=== PATIENT | male | born 1980 | race Caucasian/White ===

== ENCOUNTER 2020-01-11 11:00 | Emergency (ER) | payer OTHER, SELFPAY ==
[2020-01-11 11:40] VITALS: BP 118/71; PULSE 70; RESP 16; TEMP 35.7; O2SAT 99
--- NOTE | 2020-01-11 12:05 | ED.DENTAL ---
HPI - Dental/Oral General Chief complaint: Dental/Oral Stated complaint: toothache Time Seen by Provider: 01/11/20 11:56 Source: patient and RN notes reviewed Mode of arrival: ambulatory Limitations: no limitations History of Present Illness HPI Narrative: Patient presents today complaining of right upper posterior tooth pain x10 to 14 days. Reports the affected tooth has been broken for some time. He had an appointment with a dentist this morning, showed up for the appointment, and was told that they do not take his insurance. Currently rates his pain sick/10 and has been taking Tylenol and ibuprofen. MD Complaint: tooth pain Related Data Allergies Allergy/AdvReac Type Severity Reaction Status Date / Time No Known Allergies Allergy Unverified 07/18/19 19:16 Review of Systems Review of Systems: Narrative: CONSTITUTIONAL: Denies body aches, fever, chills, or sweats. EYES: Denies visual changes, redness, or discharge. ENT: Denies rhinorrhea, congestion, sore throat, or otalgia.+ Dental pain CARDIOVASCULAR: Denies chest pain, palpitations, or edema. RESPIRATORY: Denies cough or dyspnea. GASTROINTESTINAL: Denies abdominal pain, nausea, vomiting, or diarrhea. GENITOURINARY: Denies dysuria or hematuria. SKIN: Denies rash, itching, or wounds. MUSCULOSKELETAL: Denies back pain, joint pain, or myalgia. NEUROLOGIC: Denies headache, numbness, tingling, or weakness. PSYCH: Denies depression or anxiety. PMFSH Social History Social History Gender identity (if verbalized by the patient): Male Comments At time of signature, I have reviewed and agree with nursing past medical, surgical, social and family history unless otherwise noted. Please see nursing chart for further information. There is no relevant family history pertinent to the presenting complaint Exam Narrative: Exam Narrative: GENERAL: Well-appearing, well-nourished, and in no acute distress. HEAD: Normocephalic, atraumatic. EYES: EOMI. No redness or drainage. Conjunctivae normal. ENT: Mucous membranes pink and moist. Throat normal. Uvula midline. Tooth #1 is fractured with a piece missing. No obvious gingival swelling or periapical abscess. No facial swelling. NECK: Normal AROM. Supple. No lymphadenopathy. CHEST: No respiratory distress. EXTREMITIES: Normal range of motion. No edema. SKIN: Warm, dry, no rash. Capillary refill normal. Normal skin turgor. NEURO: No focal deficits. Alert and oriented x3. Gait steady. PSYCH: Normal affect. No signs of depression or anxiety. Course Vital Signs Vital signs: Vital Signs Temperature 96.2 F L 01/11/20 11:40 Pulse Rate 70 01/11/20 11:40 Respiratory Rate 16 01/11/20 11:40 Blood Pressure 118/71 01/11/20 11:40 Pulse Oximetry 99 01/11/20 11:40 Temperature 96.2 F L 01/11/20 11:40 Pulse Rate 70 01/11/20 11:40 Respiratory Rate 16 01/11/20 11:40 Blood Pressure 118/71 01/11/20 11:40 Pulse Oximetry 99 01/11/20 11:40 Reviewed MDM - Dental/Oral Differential Diagnosis Differential diagnosis: Likely gingival abscess, dental caries, toothache, dental abscess and fracture of tooth Critical Care Time Critical Care Time Critical Care Time: No Discharge Plan Discharge Clinical Impression: Infected dental carries Patient Disposition: Home, Self-Care Condition: Stable Instructions: Antibiotic Form, Dental Abscess (ED) Additional Instructions: Please take the amoxicillin as prescribed until gone. You may take up to 3000mg of tylenol and 2400mg of ibuprofen in 24 hours. Do not exceed these amounts. Follow-up with a dentist as soon as possible. Patient Language: Greek Prescriptions: New amoxicillin 875 mg tablet 875 mg PO Q12H 10 Days Qty: 20 RF: 0 Interventions: Discharge Disposition Last Done: 01/11/20 12:16 Follow-up/Referrals: UNKNOWN,DOCTOR [Primary Care Provider] - Time of Disposition: 12:10 Discharge Date/Time: 01/11/20 12:16
== END 2020-01-11 12:16 | disposition home or self-care (01) ==
PROVIDERS: Emergency Provider Nurse Practitioner; PCP Family Medicine
DX: K02.9 Dental caries, unspecified (principal)
CPT/HCPCS: 99213; G0463

== ENCOUNTER 2020-02-26 13:26 | Emergency (ER) | payer OTHER, SELFPAY ==
[2020-02-26 14:22] VITALS: BP 117/82; PULSE 80; RESP 20; TEMP 36.6; O2SAT 100
--- NOTE | 2020-02-26 14:43 | ED.DENTAL ---
HPI - Dental/Oral General Chief complaint: Dental/Oral Stated complaint: tooth abscess Time Seen by Provider: 02/26/20 14:30 Source: patient Mode of arrival: ambulatory Limitations: no limitations History of Present Illness HPI Narrative: Artie Avalos is a 39-year-old male with no prior medical history who comes with dental abscess of the right upper molar. He was seen here 2 to 3 weeks ago for antibiotics and seen by a dentist for and given antibiotics but was unable to get an appointment with an oral surgeon she will March 13. Is of amoxicillin and is continued to have swelling and pain in the tooth Related Data Allergies Allergy/AdvReac Type Severity Reaction Status Date / Time No Known Allergies Allergy Unverified 01/12/20 12:12 Review of Systems Review of Systems: Narrative: CONSTITUTIONAL: Denies fever, chills, sweats. EYES: Denies visual changes, redness, discharge. ENT: Denies rhinorrhea, congestion, sore throat, otalgia. Right upper molar abscess tooth 16 CARDIOVASCULAR: Denies chest pain, palpitations, edema. RESPIRATORY: Denies dyspnea, wheezing, cough GASTROINTESTINAL: Denies abdominal pain, nausea, vomiting, diarrhea. GENITOURINARY: Denies dysuria, hematuria, abnormal discharge SKIN: Denies rash or itching. NEUROLOGIC: Denies numbness, or focal weakness. PSYCHIATRIC: Denies anxiety or depression. PMFSH Family History Family History Other Depression Social History Social History Smoking status: Current every day smoker Tobacco type: e-cigarettes/vaping Alcohol intake: never Gender identity (if verbalized by the patient): Male Comments At time of signature, I agree with nursing past medical, surgical, social and family history. There is no relevant family history pertinent to the presenting complaint. Exam Narrative: Exam Narrative: GENERAL: This is a well-nourished, well-developed patient, in mild distress. HEAD: normocephalic, atraumatic. EYES: Sclera clear/white. Vision is grossly intact. EARS: External ears normal, auditory canals clear and without drainage, TMs normal without perforation. Hearing grossly intact. NOSE: External nose normal without nasal discharge, nares without redness, no rhinorrhea. THROAT: Mucous membranes moist, posterior pharynx mouth-right upper premolar tooth 16 broken swollen, right facial swelling tenderness across TMJ NECK: Neck supple, CARDIOVASCULAR: Regular rate and rhythm without murmurs, gallops, or rubs. RESPIRATORY: Clear to auscultation. Breath sounds equal bilaterally. No wheezes, rales, or rhonchi. GASTROINTESTINAL: Abdomen soft, SKIN: warm, intact with no suspicious lesions or rash, good texture and turgor. NEURO: awake, alert, and oriented to person, place and time. There were no obvious focal neurologic abnormalities. Steady gait EXTREMITIES: Normal range of motion. BACK: Nontender without deformity Course Course Emergency Course: Started on clindamycin ibuprofen 600 and limited number of [place] for pain Has oral surgeon appointment for March 13 To use salt water gargle to keep mouth clean Vital Signs Vital signs: Vital Signs Temperature 97.8 F 02/26/20 14:22 Pulse Rate 80 02/26/20 14:22 Respiratory Rate 20 02/26/20 14:22 Blood Pressure 117/82 02/26/20 14:22 Pulse Oximetry 100 02/26/20 14:22 Temperature 97.8 F 02/26/20 14:22 Pulse Rate 80 02/26/20 14:22 Respiratory Rate 20 02/26/20 14:22 Blood Pressure 117/82 02/26/20 14:22 Pulse Oximetry 100 02/26/20 14:22 MDM - Dental/Oral Differential Diagnosis Differential diagnosis: Likely gingival abscess, dental caries, dental abscess and other Discharge Plan Discharge Clinical Impression: Dental abscess Patient Disposition: Home, Self-Care Condition: Stable Instructions: Antibiotic Form, Dental Abscess (ED) Additional Instructions:
== END 2020-02-26 14:53 | disposition home or self-care (01) ==
PROVIDERS: Emergency Provider Nurse Practitioner
DX: K04.7 Periapical abscess without sinus (principal); F17.290 Nicotine dependence, other tobacco product, uncomplicated
CPT/HCPCS: 99213; G0463

== ENCOUNTER 2021-05-21 12:35 | Emergency (ER) | payer OTHER, SELFPAY ==
[2021-05-21 12:45] VITALS: BP 114/81; PULSE 74; RESP 16; TEMP 36.8; O2SAT 100
[2021-05-21] MEDS: ONDANSETRON HCL ODT 4 MG TABLET 8 MG SUBLINGUAL (14:08)
--- NOTE | 2021-05-22 08:57 | ED.GENADULT ---
HPI - General Adult General Chief complaint: Skin/Abscess/Foreign Body Stated complaint: Cut on Forehead Time Seen by Provider: 05/21/21 13:33 Source: patient and RN notes reviewed Mode of arrival: ambulatory Limitations: no limitations History of Present Illness HPI narrative: Patient presents today with abrasions to his forehead. He was at work just prior to arrival, and struck the center of his forehead on the corner of a freezer. Denies loss of consciousness. He does report a headache, mostly occipital and behind his eyes. He reports some mild nausea as well some photophobia. Denies vision changes, neck pain. He is not up-to-date on his tetanus vaccine, but refuses 1 today. Currently rates his pain 6/10. He has tried no [id number] treatment prior to arrival. MD complaint: Forehead injury, headache Related Data Allergies Allergy/AdvReac Type Severity Reaction Status Date / Time No Known Allergies Allergy Verified 05/21/21 12:57 Review of Systems Review of Systems: CONSTITUTIONAL: Denies body aches, fever, chills, or sweats. EYES: Denies visual changes, redness, or discharge.+ Photophobia ENT: Denies rhinorrhea, congestion, sore throat, or otalgia. CARDIOVASCULAR: Denies chest pain, palpitations, or edema. RESPIRATORY: Denies cough or dyspnea. GASTROINTESTINAL: Denies abdominal pain, vomiting, or diarrhea.+ Nausea GENITOURINARY: Denies dysuria or hematuria. SKIN: Denies rash, itching, or wounds.+ Abrasion MUSCULOSKELETAL: Denies back pain, joint pain, or myalgia. NEUROLOGIC: Denies numbness, tingling, or weakness.+ Headache PSYCH: Denies depression or anxiety. [facility] Family History Family History Other Depression Social History Social History Smoking status: Current every day smoker Tobacco type: e-cigarettes/vaping Alcohol intake: never Gender identity (if verbalized by the patient): Male Comments At time of signature, I have reviewed and agree with nursing past medical, surgical, social and family history unless otherwise noted. Please see nursing chart for further information. There is no relevant family history pertinent to the presenting complaint Exam Narrative: GENERAL: Well-appearing, well-nourished, and in mild pain distress. HEAD: Normocephalic, atraumatic. EYES: EOMI. PERRL. No redness or drainage. Conjunctivae normal. ENT: Mucous membranes pink and moist. NECK: Normal AROM. Supple. No lymphadenopathy. CHEST: No respiratory distress. Clear to auscultation. HEART: Regular rate and rhythm. No murmur appreciated. Normal peripheral pulses. ABDOMEN: Soft, nontender, nondistended, normal active bowel sounds. MUSCULOSKELETAL: No bony tenderness. EXTREMITIES: Normal range of motion. No edema. SKIN: Warm, dry, no rash. Capillary refill normal. Normal skin turgor. Mild abrasions between eyebrows on forehead. No active bleeding. NEURO: No focal deficits. Alert and oriented x3. Gait steady. PSYCH: Normal affect. No signs of depression or anxiety. Course Course Emergency Course: Patient has been treated with a dose of Zofran for his nausea prior to discharge. He declines tetanus vaccine. He declines a prescription for Zofran. Vital Signs Vital signs: Vital Signs Temperature 98.2 F 05/21/21 12:45 Pulse Rate 74 05/21/21 12:45 Respiratory Rate 16 05/21/21 12:45 Blood Pressure 114/81 05/21/21 12:45 Pulse Oximetry 100 05/21/21 12:45 Temperature 98.2 F 05/21/21 12:45 Pulse Rate 74 05/21/21 12:45 Respiratory Rate 16 05/21/21 12:45 Blood Pressure 114/81 05/21/21 12:45 Pulse Oximetry 100 05/21/21 12:45 Reviewed. Pt has been instructed to follow up with his PCP regarding his elevated blood pressure today. Medical Decision Making Differential Diagnosis Differential Diagnosis: Abrasion, contusion, intracranial hemorrhage, concuss
== END 2021-05-21 14:25 | disposition home or self-care (01) ==
PROVIDERS: Emergency Provider Nurse Practitioner
DX: S06.0X0A Concussion without loss of consciousness, initial encounter (principal); F17.290 Nicotine dependence, other tobacco product, uncomplicated; W22.8XXA Striking against or struck by other objects, initial encounter; Y99.0 Civilian activity done for income or pay
CPT/HCPCS: 99213; A9270; G0463

== ENCOUNTER 2022-03-15 13:23 | Emergency (ER) | payer OTHER, SELFPAY ==
[2022-03-15 13:32] VITALS: BP 129/89; PULSE 85; RESP 18; TEMP 36.4; O2SAT 100
--- NOTE | 2022-03-15 14:10 | ED.GENADULT ---
HPI - General Adult General Chief complaint: Shortness of Breath/Dyspnea Stated complaint: Chest Pain Time Seen by Provider: 03/15/22 14:11 Source: patient and RN notes reviewed Mode of arrival: ambulatory Limitations: no limitations History of Present Illness HPI narrative: 41-year-old male presents to the [facility] with complaints of my heart pounding hard. Patient states that he is very concerned that it is his heart making him feel like this. States it feels like his heart keeps beating really hard and causing him to be short of breath and having to take really deep breaths. Patient states I am getting older . Patient also states he had a similar feeling when he was dehydrated a couple of years ago. Patient does not appear dehydrated. Patient appears nontoxic. Patient is having discomfort in the left side of his chest. Has not taken anything for pain. States that he was at work and had to leave because he just did not feel right. Patient talking in full sentences, vitals are stable MD complaint: Palpitations Onset (ago): day(s) (1) Radiation: non-radiation Severity: mild Related Data Home Medications Medication Instructions Recorded Confirmed cetirizine 10 mg tablet 1 tablet PO DAILY PRN Allergy 03/15/22 03/15/22 Symptoms cholecalciferol (vitamin D3) 1,250 1 cap PO WEEKLY 03/15/22 03/15/22 mcg (50,000 unit) capsule fluticasone propionate 50 1 ea intranasal DIRECTED 03/15/22 03/15/22 mcg/actuation nasal spray,suspension Allergies Allergy/AdvReac Type Severity Reaction Status Date / Time No Known Allergies Allergy Verified 03/15/22 13:29 Review of Systems Review of Systems: All systems reviewed & are unremarkable except as noted in HPI and below Constitutional: Constitutional: Reports no additional constitutional complaints, Denies chills and Denies fever(s) Eyes: Eyes: Reports no additional eye complaints ENT: Reports system reviewed and no additional complaints, except as documented Cardiovascular: Cardiovascular: Reports as per HPI and Reports chest pain Respiratory: Respiratory: Reports as per HPI and Reports dyspnea Gastrointestinal: Gastrointestinal: Reports no additional gastrointestinal complaints Musculoskeletal: Musculoskeletal: Reports no additional musculoskeletal complaints Integumentary/Breasts: Skin/Breast: Reports system reviewed and no additional complaints, except as docu Neurologic: Reports system reviewed and no additional complaints, except as documented Psychiatric: Psychiatric: Reports no additional psychiatric complaints Allergic/Immunologic: Allergic/Immunologic: Reports no additional allergic/immunologic complaints PMFSH Past Medical History Medical History (Updated 03/15/22 @ 14:39 by Seble Rust APRN) Patient denies medical problems Surgical History Surgical History (Updated 03/15/22 @ 14:37 by Seble Rust APRN) No history of previous surgery Family History Family History Other Depression Social History Social History Smoking status: Current every day smoker Tobacco type: e-cigarettes/vaping Alcohol intake: never Gender identity (if verbalized by the patient): Male Comments At the time of my signature, I reviewed and agree with the nursing past medical, surgical, social, and family history. There is no relevant family history pertinent to the patient complaint. Exam Const: General: healthy appearing, no acute distress and alert Nutritional Appearance: well nourished Orientation/consciousness: patient oriented x3 Limitations: no limitations HENMT: Head: normal to inspection Ears: external ears normal General nose exam: Normal external nose present Eyes: General: appearance normal, both eyes and all related structures Pupils: Equal, round and reactive pupils present Neck: Neck: normal visual inspec
--- NOTE | 2022-03-15 14:19 | ECG_ITS ---
Measurements Intervals [place] Rate: 72 P: 72 UT: 120 QRS: 77 QRSD: 95 T: 53 QT: 383 QTc: 420 Interpretive Statements SINUS RHYTHM BASELINE ARTIFACT- I, II, AVR, AVL NORMAL ECG Electronically Signed On 03-15-2022 15:07:47 CDT by Jose Parker D.O.
== END 2022-03-15 14:36 | disposition short-term general hospital (02) ==
PROVIDERS: Emergency Provider Nurse Practitioner; PCP Family Medicine
DX: R00.2 Palpitations (principal); R06.02 Shortness of breath; F17.290 Nicotine dependence, other tobacco product, uncomplicated
CPT/HCPCS: 93005; 99213; G0463

== ENCOUNTER 2022-03-15 15:00 | Emergency (ER) | payer OTHER, SELFPAY ==
--- NOTE | ~2022-03-15 | XR_ITS ---
XR chest 2V DATE: 03/15/2022 15:23 INDICATION: Left-sided chest pain, palpitations, shortness of breath TECHNIQUE: 2 views COMPARISON: 05/08/2010 two-view chest FINDINGS: Prominent bilateral hyperinflation with increased retrosternal airspace and flattening the diaphragm, consistent with obstructive airways disease. No pulmonary infiltrate or consolidation, pleural effusion or pulmonary vascular congestion or pneumo thorax. Normal heart size. No hilar or mediastinal enlargement. IMPRESSION: Bilateral hyperinflation consistent with obstructive airways disease; hyperinflation is p rominent compared to 05/08/2010 Reviewed, dictated and finalized at location A. IMPRESSION: Bilateral hyperinflation consistent with obstructive airways diseas e; hyperinflation is prominent compared to 05/08/2010
[2022-03-15 15:03] VITALS: BP 132/109; PULSE 89; RESP 18; TEMP 36.9; O2SAT 98
--- NOTE | 2022-03-15 15:06 | ECG_ITS ---
Measurements Intervals [place] Rate: 82 P: 79 NV: 123 QRS: 81 QRSD: 94 T: 56 QT: 355 QTc: 417 Interpretive Statements SINUS RHYTHM WITH SINUS ARRHYTHMIA BORDERLINE ST-T WAVE ABNORMALITY- INFERIOR LEADS BORDERLINE ECG Electronically Signed On 03-15-2022 15:16:41 CDT by Jose Parker D.O.
[2022-03-15 15:23] LABS: Hematocrit 45.7 % (42.0-52.0); Hemoglobin 15.3 g/dL (14.0-18.0); Mean Corpuscular HGB Conc 33.5 g/dl (32-36); Mean Corpuscular Hemoglobin 30.1 pg (26-34); Mean Corpuscular Volume 89.8 fl (80-100); Mean Platelet Volume 9.3 fl (7.4-10.4); Platelet Count Result 230 k/mm3 (150-375); Red Blood Count 5.09 M/mm3 (4.6-6.20); Red Cell Distribution Width 12.8 % (11.5-14.5); White Blood Count 6.7 K/mm3 (4.5-10.0)
[2022-03-15 15:33] LABS: Alanine Aminotransferase 15 U/L (6-50); Albumin Level 4.8 g/dL (3.5-5.1); Alkaline Phosphatase 58 U/L (38-126); Anion Gap 6 mmol/L (8-16); Aspartate Amino Transferase 23 U/L (17-59); Bilirubin,Total 0.6 mg/dL (0.2-1.3); Blood Urea Nitrogen 17 mg/dL (9-20); Calcium 9.3 mg/dL (8.4-10.2); Carbon Dioxide 29 mmol/L (22-30); Chloride 104 mmol/L (98-107); Estimated CRCL calculation 101 ml/min; Estimated Glomerular Filt Rate > 60; Glucose 112 mg/dL (65-110); Lipase 101 U/L (23-300); Sodium 139 mmol/L (137-145)
[2022-03-15 15:45] LABS: Troponin I < 0.012 ng/mL (0.000-0.034)
[2022-03-15 15:54] VITALS: PULSE 74
[2022-03-15 15:58] VITALS: BP 133/93; PULSE 70; RESP 18; O2SAT 97
[2022-03-15] MEDS: ASPIRIN 81 MG CHEWABLE TABLET 324 MG PO (16:06)
--- NOTE | 2022-03-15 16:08 | ED.CHESTPAIN ---
HPI - Chest Pain General Chief Complaint: Chest Pain Stated Complaint: Chest Pain, SOB Time Seen by Provider: 03/15/22 16:08 History of Present Illness HPI narrative: Patient is a 41-year-old male presenting for evaluation of palpitations. Patient reports intermittent palpitations, shortness of breath. Denies specific chest pain or pressure. Denies radiation of the pain to the shoulder, jaw, neck. Patient does report mild middle back pain. Patient reports significant anxiety, denies any significant depression or suicidal thoughts or ideation. He denies fever, chills, nausea or vomiting. Patient denies lower leg swelling or pain. He denies history of coagulopathy, recent car or air travel. Related Data Allergies Allergy/AdvReac Type Severity Reaction Status Date / Time No Known Allergies Allergy Verified 03/15/22 15:58 [facility] Past Medical History Medical History (Updated 03/15/22 @ 17:53 by Jeanette Almeida MD) Patient denies medical problems Surgical History Surgical History (Updated 03/15/22 @ 14:37 by Seble Rust APRN) No history of previous surgery Family History Family History Other Depression Social History Social History Smoking status: Current every day smoker Tobacco type: e-cigarettes/vaping Alcohol intake: never Gender identity (if verbalized by the patient): Male Course Vital Signs Vital signs: Vital Signs Temperature 36.9 C 03/15/22 15:03 Pulse Rate 89 03/15/22 15:03 Respiratory Rate 18 03/15/22 15:03 Blood Pressure 132/109 H 03/15/22 15:03 Pulse Oximetry 98 03/15/22 15:03 Oxygen Delivery Room Air 03/15/22 15:03 Temperature 36.9 C 03/15/22 15:03 Pulse Rate 77 03/15/22 17:00 Respiratory Rate 16 03/15/22 17:00 Blood Pressure 126/80 03/15/22 17:00 Pulse Oximetry 96 03/15/22 17:00 Oxygen Delivery Room Air 03/15/22 15:03 MDM - Chest Pain MDM Narrative Medical decision making narrative: Patient's EKG and labs are without significant high risk changes. Cardiac risk factors reviewed. Patient is felt low risk for ACS and reasonable for further risk stratification testing as an outpatient. Pain was not sudden or maximal or onset without tearing or ripping quality. No other signs or symptoms to suggest aortic dissection. A low risk well's criteria is noted, patient is PERC criteria negative. PE is felt to be unlikely. No pneumonia seen on evaluation today. Patient is felt to be a reasonable candidate for continued evaluation as an outpatient. Lab Data Result diagrams: 03/15/22 15:14 03/15/22 15:14 Labs: Lab Results 03/15/22 03/15/22 03/15/22 Range/Units 15:14 15:14 15:14 WBC 6.7 (4.5-10.0) K/mm3 RBC 5.09 (4.6-6.20) M/mm3 Hgb 15.3 (14.0-18.0) g/dL Hct 45.7 (42.0-52.0) % MCV 89.8 (80-100) fl MCH 30.1 (26-34) pg MCHC 33.5 (32-36) g/dl RDW 12.8 (11.5-14.5) % Plt Count 230 (150-375) k/mm3 MPV 9.3 (7.4-10.4) fl Immature Gran % (Auto) Not Reportable Neut % (Auto) Not Reportable Lymph % (Auto) Not Reportable [place] % (Auto) Not Reportable Eos % (Auto) Not Reportable Baso % (Auto) Not Reportable Lymph # (Auto) Not Reportable [place] # (Auto) Not Reportable Eos # (Auto) Not Reportable Baso # (Auto) Not Reportable Abs Immat Gran (auto) Not Reportable Absolute Neuts (auto) Not Reportable Absolute Nucleated RBC Not Reportable Nucleated RBC % Not Reportable PT 13.0 (11.1-14.7) Seconds INR 1.0 APTT 31.3 (22.3-36.8) SECONDS Sodium 139 (137-145) mmol/L Potassium 4.0 (3.4-5.0) mmol/L Chloride 104 (98-107) mmol/L Carbon Dioxide 29 (22-30) mmol/L Anion Gap 6 L (8-16) mmol/L BUN 17 (9-20) mg/dL Creatinine 0.80 (0.7-1.3) mg/dL Estim Creat Anjel
[2022-03-15 16:24] LABS: Partial Thromboplastin Time 31.3 SECONDS (22.3-36.8)
[2022-03-15 17:00] VITALS: BP 126/80; PULSE 77; RESP 16; O2SAT 96
[2022-03-15 18:12] VITALS: BP 117/83; PULSE 66; RESP 16; O2SAT 98
[2022-03-15 18:33] LABS: D Dimer < 0.27 ug/mL (<0.48)
[2022-03-15 18:39] LABS: Troponin I < 0.012 ng/mL (0.000-0.034)
== END 2022-03-15 18:20 | disposition home or self-care (01) ==
PROVIDERS: Emergency Provider Emergency Medicine; PCP Family Medicine
DX: R00.2 Palpitations (principal); R07.89 Other chest pain; F17.290 Nicotine dependence, other tobacco product, uncomplicated; F17.210 Nicotine dependence, cigarettes, uncomplicated; R94.31 Abnormal electrocardiogram [ECG] [EKG]
CPT/HCPCS: 36415; 71046; 80053; 83690; 84443; 84484; 85025; 85380; 85610; 85730; 93005; 99213; 99284; A9270; G0463

== ENCOUNTER 2023-05-09 14:59 | Emergency (ER) | payer OTHER, SELFPAY ==
[2023-05-09 15:16] VITALS: BP 125/80; PULSE 62; RESP 14; TEMP 36.8; O2SAT 100
--- NOTE | 2023-05-09 15:51 | ED.WOUNDLAC ---
HPI - Wound/Laceration General Chief Complaint: Wound/Laceration Stated Complaint: Left Hand Laceration Time Seen by Provider: 05/09/23 15:21 Source: patient and RN notes reviewed Mode of arrival: ambulatory Limitations: no limitations History of Present Illness HPI narrative: Patient presents today complaining of a laceration to his left hand between his 1st and 2nd fingers that occurred just prior to arrival while at work [employer]. He cut it while trying to cut Saran wrap. He is not up-to-date on tetanus vaccine. Currently rates his pain 4/10. Reports some tingling in his fingers. Related Data Allergies Allergy/AdvReac Type Severity Reaction Status Date / Time No Known Allergies Allergy Verified 05/09/23 15:13 Review of Systems Review of Systems: CONSTITUTIONAL: Denies body aches, fever, chills, or sweats. EYES: Denies visual changes, redness, or discharge. ENT: Denies rhinorrhea, congestion, sore throat, or otalgia. CARDIOVASCULAR: Denies chest pain, palpitations, or edema. RESPIRATORY: Denies cough or dyspnea. GASTROINTESTINAL: Denies abdominal pain, nausea, vomiting, or diarrhea. GENITOURINARY: Denies dysuria or hematuria. SKIN: Denies rash, itching. + left hand laceration MUSCULOSKELETAL: Denies back pain, joint pain, or myalgia. NEUROLOGIC: Denies headache, numbness, tingling, or weakness. PSYCH: Denies depression or anxiety. [facility] Past Medical History Medical History Patient denies medical problems Surgical History Surgical History No history of previous surgery Family History Family History Other Depression Social History Social History Smoking status: Current every day smoker Tobacco type: e-cigarettes/vaping Alcohol intake: never Gender identity (if verbalized by the patient): Male Comments At time of signature, I have reviewed and agree with nursing past medical, surgical, social and family history unless otherwise noted. Please see nursing chart for further information. There is no relevant family history pertinent to the presenting complaint Exam Narrative: GENERAL: Well-appearing, well-nourished, and in no acute distress. HEAD: Normocephalic, atraumatic. EYES: EOMI. No redness or drainage. Conjunctivae normal. ENT: Mucous membranes pink and moist. NECK: Normal AROM. CHEST: No respiratory distress. EXTREMITIES: Normal range of motion. No edema. SKIN: Warm, dry, no rash. Capillary refill normal. Normal skin turgor. 1 cm full-thickness linear laceration in the dorsum of the hand in the webbing between the 1st and 2nd fingers. Distal sensation intact in all 5 fingers. Capillary refill normal. Full range of motion of all 5 fingers. No active bleeding. NEURO: No focal deficits. Alert and oriented x3. Gait steady. PSYCH: Normal affect. No signs of depression or anxiety. Course Course Level of Care: Express Care Visit Vital Signs Vital signs: Vital Signs Temperature 98.2 F 05/09/23 15:16 Pulse Rate 62 05/09/23 15:16 Respiratory Rate 14 05/09/23 15:16 Blood Pressure 125/80 05/09/23 15:16 Pulse Oximetry 100 05/09/23 15:16 Oxygen Delivery Room Air 05/09/23 15:16 Temperature 98.2 F 05/09/23 15:16 Pulse Rate 62 05/09/23 15:16 Respiratory Rate 14 05/09/23 15:16 Blood Pressure 125/80 05/09/23 15:16 Pulse Oximetry 100 05/09/23 15:16 Oxygen Delivery Room Air 05/09/23 15:16 Reviewed. Pt has been instructed to follow up with his PCP regarding his elevated blood pressure today. Procedures Laceration Laceration 1: Date: 05/09/23 Time: 15:54 Site: hand Side (If applicable): left Size (cm): 1 Description: linear Depth: simple, single l
[2023-05-09] MEDS: TETANUS,DIPHTHERIA,AC PERTUSSIS ADULT (0.5 ML) BOOSTRIX IM (15:56)
== END 2023-05-09 16:21 | disposition home or self-care (01) ==
PROVIDERS: Emergency Provider Nurse Practitioner; PCP Family Medicine
DX: S61.412A Laceration without foreign body of left hand, initial encounter (principal); W45.8XXA Other foreign body or object entering through skin, initial encounter; Z23 Encounter for immunization; F17.290 Nicotine dependence, other tobacco product, uncomplicated
CPT/HCPCS: 12001; 90471; 90714; 90715; 99212; G0463